=== PATIENT | female | born 1960 | race Caucasian/White ===

== ENCOUNTER 2018-01-05 11:02 | Emergency (ER) | payer BC, OTHER ==
[~2018-01-05] VITALS: Ht 149.9 cm; Wt 37.1 kg
[~2018-01-05 11:02] MED LIST: DELTASONE1 MG PO; FIORICET,ESG1 TABLET PO; METHOTREXATE2.5 M1; METHOTREXATE2.5 MG PO; PERCOCET 7.51 TABLET PO; PREDNISONE20 M1; RELAFEN500 MG PO; Relafen PO; Vicodin,Norco 5/325 PO; Zithromax PO; predniSONE PO
[2018-01-05 13:40] VITALS: BP 139/88
== END 2018-01-05 13:41 | disposition home or self-care (01) ==
LOC: EME 11:02
DX: M06.842 Other specified rheumatoid arthritis, left hand (principal); S60.445A External constriction of left ring finger, initial encounter; W49.04XA Ring or other jewelry causing external constriction, initial encounter; Z87.891 Personal history of nicotine dependence
CPT/HCPCS: 99281; 99283